=== PATIENT | male | born 1965 | race Caucasian/White ===

== ENCOUNTER 2018-06-09 13:28 | Emergency (ER) | payer BC ==
[2018-06-09] MEDS ORDERED: LIDOCAINE 1% MPF 5 ML VIAL ONE (13:51)
--- NOTE | 2018-06-09 14:27 | ER ---
Nurse's Notes [facility] Name: Josh Carlos Age: 52 yrs Sex: Male : 1965 Arrival Date: 06/09/2018 Time: 13:33 Bed 6 Private MD: None, None Diagnosis: Laceration without foreign body, left knee Presentation: 06/09 13:44 Presenting complaint: Patient states: Cut knee with hedge trimmers today just [employer]. aj Transition of care: patient was not received from another setting of care. Onset of symptoms was June 09, 2018. Risk Assessment: Do you want to hurt yourself or someone else? Patient reports no desire to harm self or others. Initial Sepsis Screen: Does the patient meet any 2 criteria? No. Patient's initial sepsis screen is negative. Does the patient have a suspected source of infection? No. Patient's initial sepsis screen is negative. Care prior to arrival: None. 13:44 Method Of Arrival: Wheelchair aj 13:44 Acuity: PEGGY 4 aj Triage Assessment: 13:46 General: Appears in no apparent distress. comfortable, Behavior is calm, cooperative, aj appropriate for age. Pain: Complains of pain in left knee. Neuro: Level of Consciousness is awake, alert, obeys commands, Oriented to person, place, time, situation, Appropriate for age. Respiratory: Airway is patent Respiratory effort is even, unlabored, Respiratory pattern is regular, symmetrical. Derm: Skin is intact, is healthy with good turgor, Skin is pink, warm \T\ dry. normal. Injury Description: Laceration sustained to left knee is clean, 2.6 to 7.5 cm long, was sustained less than 30 minutes ago. a small amount of bleeding noted at this time. Historical: - Allergies: 13:46 No Known Allergies; aj - Home Meds: 13:46 hydrochlorothiazide oral [Active]; Metoprolol Tartrate Oral [Active]; Allopurinol Oral aj [Active]; levothyroxine oral [Active]; Nexium Oral [Active]; - PMHx: 13:46 Hypothyroidism; Hypertension; GERD; aj - PSHx: 13:46 None; aj - Immunization history:: Adult Immunizations up to date. - Social history:: Smoking status: Patient/guardian denies using tobacco, Patient uses alcohol, on a daily basis. - Ebola Screening: : Patient negative for fever greater than or equal to 101.5 degrees Fahrenheit, and additional compatible Ebola Virus Disease symptoms Patient denies exposure to infectious person Patient denies travel to an Ebola-affected area in the 21 days before illness onset No symptoms or risks identified at this time. - Family history:: not pertinent. - Hospitalizations: : No recent hospitalization is reported. Screenin:03 Abuse screen: Denies threats or abuse. Denies injuries from another. Nutritional sv screening: No deficits noted. Tuberculosis screening: No symptoms or risk factors identified. Fall Risk None identified. Assessment: 13:45 General: Appears in no apparent distress. uncomfortable, Behavior is calm, cooperative, sv appropriate for age. Pain: Denies pain. Neuro: Level of Consciousness is awake, alert, obeys commands, Oriented to person, place, time, situation, Moves all extremities. Full function. Respiratory: Respiratory effort is even, unlabored, Respiratory pattern is regular, symmetrical. Derm: Skin is pink, warm \T\ dry. Musculoskeletal: Range of motion: intact in all extremities. Injury Description: Laceration sustained to left knee is contaminated, 0.5 to 2.5 cm long, was sustained 30-60 minutes ago. a small amount of bleeding noted at this time. Vital Signs: 13:46 BP 144 / 102; Pulse 73; Resp 16; Temp 96.9; Pulse Ox 99% on R/A; Weight 79.38 kg; aj Height 5 ft. 8 in. (172.72 cm); 13:46 Body Mass Index 26.61 (79.38 kg, 172.72 cm) aj ED Course: 13:33 Patient arrived in ED. mr 13:34 None, None is Private Physician. mr 13:42 Sathish Gtz MD is Attending Physician. rn 13:44 Triage completed. aj 13:45 Patient has correct armband on for positive identification. Bed in low position. Side sv rails up X2. Adult w/ patient. Door closed. Head of bed elevated. 13:46 Sheridan Childs, ZITA is Primary Nurse. sv 13:46 Arm band placed on left wrist. Patient placed in an exam room, on a stretcher. aj 14:02 Irrigation of laceration on left knee irrigated with normal saline 500 mls Patient sv tolerated well. 14:24 Assist provider with laceration repair on left knee that was 2.5 cm. or less using sv sutures. Set up tray. Performed by Sathish Gtz MD Dressed with band aid, Neosporin, Patient tolerated well. Patient did not have IV access during this emergency room visit. 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 Exp: sv 08/19/2020. Lot #: [id number]. } Route: IM; Site: left deltoid; 15:07 Follow up: Response: No adverse reaction sv Outcome: 14:26 Discharge ordered by . rn 15:07 Patient left the ED. sv 15:07 Discharged to home ambulatory, with family. sv 15:07 Condition: stable 15:07 Discharge instructions given to patient, Instructed on discharge instructions, follow up and referral plans. wound care, Demonstrated understanding of instructions, follow-up care, wound care. Signatures: Sheridan Childs RN RN sv Myers, Amanda, RN RN aj Rivera, Maria mr Nieto, Roman, MD MD rn
--- NOTE | 2018-06-09 14:28 | EDPHYS ---
Physician Documentation [facility] Name: Josh Carlos Age: 52 yrs Sex: Male : 1965 Arrival Date: 06/09/2018 Time: 13:33 Bed 6 Private MD: None, None ED Physician Sathish Gtz HPI: 06/09 14:23 This 52 yrs old Male presents to ER via Wheelchair with complaints of Knee rn Laceration. 14:23 The patient has a laceration related to: doing yard work, occurred at home, and there rn are no complicating factors. The laceration(s) is(are) located on the left knee. Onset: The symptoms/episode began/occurred just prior to arrival. The patient has not experienced similar symptoms in the past. Accidentally hit leg with pruning lalo, not deep, irrigated wound with water just after it happened. Ambulatory with full ROM.. Historical: - Allergies: 13:46 No Known Allergies; aj - Home Meds: 13:46 hydrochlorothiazide oral [Active]; Metoprolol Tartrate Oral [Active]; Allopurinol Oral aj [Active]; levothyroxine oral [Active]; Nexium Oral [Active]; - PMHx: 13:46 Hypothyroidism; Hypertension; GERD; aj - PSHx: 13:46 None; aj - Immunization history:: Adult Immunizations up to date. - Social history:: Smoking status: Patient/guardian denies using tobacco, Patient uses alcohol, on a daily basis. - Ebola Screening: : Patient negative for fever greater than or equal to 101.5 degrees Fahrenheit, and additional compatible Ebola Virus Disease symptoms Patient denies exposure to infectious person Patient denies travel to an Ebola-affected area in the 21 days before illness onset No symptoms or risks identified at this time. - Family history:: not pertinent. - Hospitalizations: : No recent hospitalization is reported. ROS: 14:24 Constitutional: Negative for fever, chills, and weight loss, MS/Extremity: + laceration rn to left knee Exam: 14:24 Constitutional: This is a well developed, well nourished patient who is awake, alert, rn and in no acute distress. MS/ Extremity: Pulses equal, no cyanosis. Neurovascular intact. Full, normal range of motion. Equal circumference. 3cm linear, superficial laceration without visible tendon/bone/foreign body Vital Signs: 13:46 BP 144 / 102; Pulse 73; Resp 16; Temp 96.9; Pulse Ox 99% on R/A; Weight 79.38 kg; aj Height 5 ft. 8 in. (172.72 cm); 13:46 Body Mass Index 26.61 (79.38 kg, 172.72 cm) aj Laceration: 14:24 Wound Repair of 3cm ( 1.2in ) subcutaneous laceration to left knee. Distal rn neuro/vascular/tendon intact. Anesthesia: Wound infiltrated with 3 mls of 1% lidocaine. Wound prep: Extensive cleansing by nurse, Wound explored extensively. Skin closed with 4 3-0 Prolene using interrupted sutures and sterile technique. Dressed with Neosporin. Patient tolerated well. MDM: 13:42 Patient medically screened. rn 14:24 Differential diagnosis: superficial laceration. Data reviewed: vital signs, nurses rn notes, and as a result, I will discharge patient. Counseling: I had a detailed discussion with the patient and/or guardian regarding: the historical points, exam findings, and any diagnostic results supporting the discharge/admit diagnosis, the need for outpatient follow up, to return to the emergency department if symptoms worsen or persist or if there are any questions or concerns that arise at home. Response to treatment: the patient's symptoms have markedly improved after treatment, and as a result, I will discharge patient. Special discussion: I discussed with the patient/guardian in detail that at this point there is no indication for admission to the hospital. It is understood, however, that if the symptoms persist or worsen the patient needs to return immediately for re-evaluation. 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 Exp: sv 08/19/2020. Lot #: [id number]. } Route: IM; Site: left deltoid; 15:07 Follow up: Response: No adverse reaction sv Disposition: 06/09/18 14:26 Discharged to Home. Impression: Laceration without foreign body, left knee. - Condition is Stable. - Discharge Instructions: Laceration Care, Adult. - Medication Reconciliation Form, Thank You Letter, Antibiotic Education, Prescription Opioid Use form. - Follow up: Private Physician; When: 14 days; Reason: Recheck today's complaints, Re-evaluation by your physician. - Problem is new. - Symptoms have improved. Signatures: Sheridan Childs RN RN sv Myers, Amanda, RN RN aj Nieto, Roman, MD MD digital intern: (The following items were deleted from the chart) 14: 14:26 06/09/2018 14:26 Discharged to Home. Impression: Laceration without foreign body, rn left knee. Condition is Stable. Forms are Medication Reconciliation Form, Thank You Letter, Antibiotic Education, Prescription Opioid Use. Follow up: Private Physician; When: As needed; Reason: Recheck today's complaints, Re-evaluation by your physician. Problem is new. Symptoms have improved. rn 15:07 14:27 06/09/2018 14:26 Discharged to Home. Impression: Laceration without foreign body, sv left knee. Condition is Stable. Discharge Instructions: Laceration Care, Adult. Forms are Medication Reconciliation Form, Thank You Letter, Antibiotic Education, Prescription Opioid Use. Follow up: Private Physician; When: 14 days; Reason: Recheck today's complaints, Re-evaluation by your physician. Problem is new. Symptoms have improved. rn
[2018-06-09] MEDS ORDERED: TETANUS & DIPHTHERIA TOX,ADULT 0.5 ML VIAL ONE (15:06)
== END 2018-06-09 15:07 | disposition home or self-care (01) ==
LOC: ER 13:28
PROC: 0JQP0ZZ Repair Left Lower Leg Subcutaneous Tissue and Fascia, Open Approach (ICD-10-PCS; principal; 2018-06-09)
DX: S81.012A Laceration without foreign body, left knee, initial encounter (principal); W22.8XXA Striking against or struck by other objects, initial encounter; Y93.H2 Activity, gardening and landscaping; Y92.007 Garden or yard of unspecified non-institutional (private) residence as the place of occurrence of the external cause; Z23 Encounter for immunization; I10 Essential (primary) hypertension; E03.9 Hypothyroidism, unspecified
CPT/HCPCS: 90714; 99284